=== PATIENT | male | born 1990 | race Caucasian/White ===

== ENCOUNTER 2023-11-27 08:11 | Emergency (ER) | payer OTHER, SELFPAY ==
[2023-11-27 08:21] VITALS: BP 125/80; PULSE 81; RESP 16; TEMP 36.8; O2SAT 100
--- NOTE | 2023-11-27 08:24 | ED.EYEPROB ---
HPI - Eye Problem General Chief complaint: Eye Problems Stated complaint: R EYE SWELLING/REDNESS History of Present Illness HPI Narrative: 33 y/o male presented for c/o sore throat and mild body aches; onset yesterday. Also started with right eye redness, swelling and drainage yesterday. Denies vision changes, headache, or photophobia. Denies eye injury or FB sensation. Denies cough, sob, wheezing, n/v/d/f/c. Used cough drops for symptoms. Related Data Allergies Allergy/AdvReac Type Severity Reaction Status Date / Time attapulgite Allergy Mild Unknown Verified 11/27/23 08:19 Review of Systems Review of Systems: CONSTITUTIONAL: Denies body aches, fever, chills, or sweats. EYES: Denies visual changes, reports redness, discharge. ENT: Reports sore throat Denies rhinorrhea, congestion, or otalgia. CARDIOVASCULAR: Denies chest pain, palpitations, or edema. RESPIRATORY: Denies dyspnea. GASTROINTESTINAL: Denies abdominal pain, nausea, vomiting, or diarrhea. SKIN: Denies rash, itching, or wounds. MUSCULOSKELETAL: Denies back pain, joint pain NEUROLOGIC: Denies headache Exam Narrative: GENERAL: well-appearing, no acute distress. EYES: bilateral conjunctival injection, mild periorbital swelling, yellow discharge ENT: Mucous membranes moist. TMs pearly cherry with normal light reflex bilaterally; no tragal tenderness. Oropharynx erythematous without lesions. Tonsils not enlarged and without exudate. No drooling, no hoarseness, no trismus, uvula midline. No tripod positioning, hot potato voice, or soft palate swelling. NECK: Supple. No lymphadenopathy CHEST: Clear to auscultation, breath sounds equal. No respiratory distress, speaks in full sentences. HEART: Regular rate and rhythm. No murmur heard. SKIN: Warm, dry, no rash. NEURO: Alert and oriented x3. Course Course Emergency Course: Patient is aware of diagnosis, understands and agrees to treatment plan. Anticipatory guidance given. Patient agrees to follow-up as directed and is aware of reasons to seek care at the emergency department. Portions of this record may have been created with voice recognition software Level of Care: Express Care Visit Vital Signs Vital signs: Vital Signs Temperature 98.3 F 11/27/23 08:21 Pulse Rate 81 11/27/23 08:21 Respiratory Rate 16 02/16/24 08:21 Blood Pressure 125/80 11/27/23 08:21 Pulse Oximetry 100 11/27/23 08:21 Temperature 98.3 F 11/27/23 08:21 Pulse Rate 81 11/27/23 08:21 Respiratory Rate 16 11/27/23 08:21 Blood Pressure 125/80 11/27/23 08:21 Pulse Oximetry 100 11/27/23 08:21 MDM - Eye Problem MDM Narrative Medical decision making narrative: Result of Neg strep test reviewed with pt. Discussed physical exam findings c/w bacterial conjunctivitis. Advised supportive measures and signs/symptoms to go to the ER. Pt is appropriate for outpt treatment and f/u. Differential Diagnosis Differential diagnosis: Likely conjunctivitis, periorbital cellulitis, corneal ulcer and other (Influenza, covid, sinusitis, OM, strep pharyngitis, URI) Lab Data Labs: Strep Screen Presumptive Negative *(Reference Range: Negative)* Discharge Plan Discharge Clinical Impression: Bacterial conjunctivitis, Upper respiratory infection Patient Disposition: Home, Self-Care Condition: Stable Instructions: Antibiotic Form, Conjunctivitis (ED) Additional Instructions: Avoid touching or rubbing your eye. Use over the counter lubricating eye drops as needed for irritation Use a warm or cool washcloth on your eye for comfort Use eyedrops as directed - you are contagious for 24 hours after starting the antibiotic Practice good handwashing and hygiene to prevent spread of infection Do not wear the contact lenses. Use a new pair after the infection is resolved. Use new makeup, lashes etc. You may take Tylenol or ibuprofen for pain Fol
== END 2023-11-27 08:57 | disposition home or self-care (01) ==
PROVIDERS: Emergency Provider Nurse Practitioner Family
DX: H10.9 Unspecified conjunctivitis (principal); J06.9 Acute upper respiratory infection, unspecified
CPT/HCPCS: 87081; 87880; 99213; G0463